=== PATIENT | female | born 1995 | race Caucasian/White ===

== ENCOUNTER 2017-12-14 06:28 | Emergency (ER) | payer MEDICAID ==
[~2017-12-14] VITALS: Ht 162.6 cm; Wt 74.5 kg
[~2017-12-14 06:28] MED LIST: ACYC5CRE2 TP; CEPH-571 PO; IBUP-1984 PO
[2017-12-14 06:31] VITALS: BP 124/71
[2017-12-14] MEDS ORDERED: acetaminophen w/codeine (30MG) #3 tablet PO ONE (07:15)
== END 2017-12-14 07:45 | disposition home or self-care (01) ==
LOC: ER 06:29
DX: O26.893 Other specified pregnancy related conditions, third trimester (principal); M53.3 Sacrococcygeal disorders, not elsewhere classified; F31.9 Bipolar disorder, unspecified; F17.200 Nicotine dependence, unspecified, uncomplicated; F11.90 Opioid use, unspecified, uncomplicated; Z79.2 Long term (current) use of antibiotics; Z79.1 Long term (current) use of non-steroidal anti-inflammatories (NSAID); Z3A.32 32 weeks gestation of pregnancy
CPT/HCPCS: 99284

== ENCOUNTER 2018-10-06 01:59 | Emergency (ER) | payer MEDICAID, OTHER ==
[~2018-10-06] VITALS: Ht 160 cm; Wt 59.1 kg
[2018-10-06 02:02] VITALS: BP 122/74
== END 2018-10-06 02:17 | disposition home or self-care (01) ==
LOC: ER 02:00
DX: J02.9 Acute pharyngitis, unspecified (principal); R42 Dizziness and giddiness; F15.90 Other stimulant use, unspecified, uncomplicated; R59.0 Localized enlarged lymph nodes; Z79.2 Long term (current) use of antibiotics; Z79.899 Other long term (current) drug therapy; Z86.14 Personal history of Methicillin resistant Staphylococcus aureus infection; W18.39XA Other fall on same level, initial encounter; Y93.89 Activity, other specified; Y92.89 Other specified places as the place of occurrence of the external cause; Y99.8 Other external cause status
CPT/HCPCS: 99281

== ENCOUNTER 2019-06-11 00:29 | Emergency (ER) | payer MEDICAID ==
[~2019-06-11] VITALS: Ht 162.6 cm; Wt 58.1 kg
--- NOTE | 2019-06-11 01:18 | NUR ---
WASHED PATIENTS HANDS WITH SOAP AND HOT WATER, AFTER EDUCATING PATIENT ON WAYS THAT HUMANS CAN GET INFECTIONS AND THE BEST PREVENTION IS HAND HYGIENE. PATIENT VERBALLY UNDERSTANDING AFTER HAND HYGIENE EDUCATION
[2019-06-11] MEDS ORDERED: CEPH-572 PO (01:21)
[2019-06-11 01:35] VITALS: BP 115/75
== END 2019-06-11 01:37 | disposition home or self-care (01) ==
LOC: ER 00:30
DX: S61.210A Laceration without foreign body of right index finger without damage to nail, initial encounter (principal); F41.9 Anxiety disorder, unspecified; F31.9 Bipolar disorder, unspecified; F20.9 Schizophrenia, unspecified; F17.200 Nicotine dependence, unspecified, uncomplicated; F15.90 Other stimulant use, unspecified, uncomplicated; Z86.14 Personal history of Methicillin resistant Staphylococcus aureus infection; Z86.69 Personal history of other diseases of the nervous system and sense organs; Z59.0 Homelessness; Z79.899 Other long term (current) drug therapy; W26.8XXA Contact with other sharp object(s), not elsewhere classified, initial encounter; Y93.89 Activity, other specified; Y92.89 Other specified places as the place of occurrence of the external cause; Y99.8 Other external cause status
CPT/HCPCS: 99283

== ENCOUNTER 2019-09-09 06:37 | Emergency (ER) | payer MEDICAID ==
[~2019-09-09] VITALS: Ht 162.6 cm; Wt 61.5 kg
[2019-09-09 06:46] VITALS: BP 104/65
--- NOTE | 2019-09-09 07:01 | NUR ---
pt came in for redness and pain to her anus. pt refused to have male doctor perform the exam so she left ama. pt signed the form and aware.
== END 2019-09-09 07:03 | disposition left against medical advice (07) ==
LOC: ER 06:37
DX: R21 Rash and other nonspecific skin eruption (principal); F41.9 Anxiety disorder, unspecified; F31.9 Bipolar disorder, unspecified; F20.9 Schizophrenia, unspecified; F15.90 Other stimulant use, unspecified, uncomplicated; Z86.69 Personal history of other diseases of the nervous system and sense organs; Z59.0 Homelessness; Z79.899 Other long term (current) drug therapy
CPT/HCPCS: 99281

== ENCOUNTER 2019-10-02 23:30 | Emergency (ER) | payer MEDICAID ==
[~2019-10-02] VITALS: Ht 162.6 cm; Wt 59.1 kg
[2019-10-02 23:57] LABS: CLARITY,URINE CLEAR (Clear); COLOR,URINE YELLOW (Yellow); GLUCOSE, URINE NEGATIVE (Neg); KETONES,URINE NEGATIVE (Neg); LEUKOCYTE ESTERASE ,URINE NEGATIVE (Neg); NITRITES, URINE NEGATIVE (Neg); OCCULT BLOOD,URINE NEGATIVE (Neg); PH,URINE 5.5 (4.8-8.0); PROTEIN,URINE NEGATIVE (Neg); URINE HCG NEGATIVE (NEG)
[2019-10-03 00:20] LABS: UA COLLECTION TYPE CLN CATCH MIDSTREAM
[2019-10-03 00:56] VITALS: BP 117/82
== END 2019-10-03 01:06 | disposition home or self-care (01) ==
LOC: VAS 23:31 → ER 10-03 01:06
DX: R30.0 Dysuria (principal); F15.10 Other stimulant abuse, uncomplicated; F41.9 Anxiety disorder, unspecified; F31.9 Bipolar disorder, unspecified; R10.2 Pelvic and perineal pain; R10.30 Lower abdominal pain, unspecified; F20.9 Schizophrenia, unspecified; Z59.0 Homelessness; Z79.899 Other long term (current) drug therapy; Z86.69 Personal history of other diseases of the nervous system and sense organs; Z86.14 Personal history of Methicillin resistant Staphylococcus aureus infection
CPT/HCPCS: 81003; 81025; 99283

== ENCOUNTER 2019-12-16 04:43 | Emergency (ER) | payer MEDICAID ==
[~2019-12-16] VITALS: Ht 160 cm; Wt 61.4 kg
[2019-12-16 04:48] VITALS: BP 125/84
[2019-12-16] MEDS ORDERED: SULF1TAB49 PO (05:10)
== END 2019-12-16 05:21 | disposition home or self-care (01) ==
LOC: ER 04:44
DX: L03.115 Cellulitis of right lower limb (principal); F41.9 Anxiety disorder, unspecified; F31.9 Bipolar disorder, unspecified; F20.9 Schizophrenia, unspecified; F17.200 Nicotine dependence, unspecified, uncomplicated; F15.90 Other stimulant use, unspecified, uncomplicated; Z59.0 Homelessness; Z86.69 Personal history of other diseases of the nervous system and sense organs; Z86.14 Personal history of Methicillin resistant Staphylococcus aureus infection; Z79.899 Other long term (current) drug therapy
CPT/HCPCS: 99283

== ENCOUNTER 2020-01-07 21:04 | Emergency (ER) | payer MEDICAID ==
[~2020-01-07] VITALS: Ht 160 cm; Wt 59.1 kg
[2020-01-07 21:16] VITALS: BP 118/78
[2020-01-07] MEDS ORDERED: CLIN-97 PO (21:36)
== END 2020-01-07 21:45 | disposition home or self-care (01) ==
LOC: ER 21:04
DX: L02.411 Cutaneous abscess of right axilla (principal); F31.9 Bipolar disorder, unspecified; F41.9 Anxiety disorder, unspecified; F20.9 Schizophrenia, unspecified; F15.90 Other stimulant use, unspecified, uncomplicated; Z86.14 Personal history of Methicillin resistant Staphylococcus aureus infection; Z86.69 Personal history of other diseases of the nervous system and sense organs; Z59.0 Homelessness; Z79.899 Other long term (current) drug therapy
CPT/HCPCS: 99283

== ENCOUNTER 2020-03-01 23:46 | Emergency (ER) | payer MEDICAID ==
[~2020-03-01] VITALS: Ht 160 cm; Wt 47.0 kg
[~2020-03-01 23:46] MED LIST changes: +CLIN-97 PO
[2020-03-01 23:51] VITALS: BP 106/74
[2020-03-02] MEDS ORDERED: CLIN-97 PO (00:23)
== END 2020-03-02 00:36 | disposition home or self-care (01) ==
LOC: ER 23:46
DX: L02.415 Cutaneous abscess of right lower limb (principal); F41.9 Anxiety disorder, unspecified; F31.9 Bipolar disorder, unspecified; F20.9 Schizophrenia, unspecified; F15.90 Other stimulant use, unspecified, uncomplicated; Z86.69 Personal history of other diseases of the nervous system and sense organs; Z86.14 Personal history of Methicillin resistant Staphylococcus aureus infection; Z59.0 Homelessness; Z79.2 Long term (current) use of antibiotics; Z79.899 Other long term (current) drug therapy
CPT/HCPCS: 99283

== ENCOUNTER 2020-05-13 01:56 | Emergency (ER) | payer MEDICAID ==
[~2020-05-13] VITALS: Ht 162.6 cm; Wt 61.4 kg
[2020-05-13 01:59] VITALS: BP 119/71
== END 2020-05-13 02:41 | disposition home or self-care (01) ==
LOC: ER 01:57
DX: T14.8XXA Other injury of unspecified body region, initial encounter (principal); F41.9 Anxiety disorder, unspecified; F31.9 Bipolar disorder, unspecified; F20.9 Schizophrenia, unspecified; F15.90 Other stimulant use, unspecified, uncomplicated; Z72.821 Inadequate sleep hygiene; Z86.69 Personal history of other diseases of the nervous system and sense organs; Z86.14 Personal history of Methicillin resistant Staphylococcus aureus infection; Z59.0 Homelessness; Z79.2 Long term (current) use of antibiotics; Z79.899 Other long term (current) drug therapy; X58.XXXA Exposure to other specified factors, initial encounter; Y93.89 Activity, other specified; Y92.89 Other specified places as the place of occurrence of the external cause; Y99.8 Other external cause status
CPT/HCPCS: 99281

== ENCOUNTER 2020-06-04 12:23 | Emergency (ER) | payer MEDICAID ==
[~2020-06-04] VITALS: Ht 162.6 cm; Wt 68.2 kg
[2020-06-04 12:43] VITALS: BP 120/63
[2020-06-04] MEDS ORDERED: BACDS PO (14:27)
[2020-06-04] MEDS ORDERED: CEPH250T PO (14:27)
== END 2020-06-04 14:43 | disposition home or self-care (01) ==
LOC: ER 12:24
DX: L02.414 Cutaneous abscess of left upper limb (principal); L03.114 Cellulitis of left upper limb; F41.9 Anxiety disorder, unspecified; F31.9 Bipolar disorder, unspecified; F20.9 Schizophrenia, unspecified; F15.90 Other stimulant use, unspecified, uncomplicated; Z86.69 Personal history of other diseases of the nervous system and sense organs; Z86.14 Personal history of Methicillin resistant Staphylococcus aureus infection; Z59.0 Homelessness; Z79.2 Long term (current) use of antibiotics; Z79.899 Other long term (current) drug therapy
CPT/HCPCS: 99283

== ENCOUNTER 2020-08-09 00:41 | Emergency (ER) | payer MEDICAID ==
[~2020-08-09] VITALS: Ht 162.6 cm; Wt 70.3 kg
[2020-08-09 01:53] VITALS: BP 118/78
== END 2020-08-09 01:54 | disposition home or self-care (01) ==
LOC: ER 00:42
DX: L73.1 Pseudofolliculitis barbae (principal); F41.9 Anxiety disorder, unspecified; F31.9 Bipolar disorder, unspecified; F20.9 Schizophrenia, unspecified; F15.90 Other stimulant use, unspecified, uncomplicated; Z86.69 Personal history of other diseases of the nervous system and sense organs; Z86.14 Personal history of Methicillin resistant Staphylococcus aureus infection; Z59.0 Homelessness; Z79.2 Long term (current) use of antibiotics; Z79.899 Other long term (current) drug therapy
CPT/HCPCS: 99281

== ENCOUNTER 2020-08-27 11:59 | Emergency (ER) | payer MEDICAID ==
[~2020-08-27] VITALS: Ht 160 cm; Wt 68.2 kg
[2020-08-27] MEDS ORDERED: acetaminophen 325mg tablet PO ONE (13:05)
[2020-08-27] MEDS ORDERED: clindamycin 150mg capsule PO ONE (13:05)
[2020-08-27] MEDS ORDERED: CLIN150C2 PO (13:06)
[2020-08-27 13:39] VITALS: BP 119/81
== END 2020-08-27 13:45 | disposition home or self-care (01) ==
LOC: ER 12:01
DX: L02.416 Cutaneous abscess of left lower limb (principal); L03.116 Cellulitis of left lower limb; F41.9 Anxiety disorder, unspecified; F31.9 Bipolar disorder, unspecified; F20.9 Schizophrenia, unspecified; F15.90 Other stimulant use, unspecified, uncomplicated; Z86.69 Personal history of other diseases of the nervous system and sense organs; Z86.14 Personal history of Methicillin resistant Staphylococcus aureus infection; Z59.0 Homelessness; Z79.2 Long term (current) use of antibiotics; Z79.899 Other long term (current) drug therapy
CPT/HCPCS: 99283

== ENCOUNTER 2023-02-22 22:45 | Emergency (ER) | payer MEDICAID ==
[~2023-02-22] VITALS: Ht 160 cm; Wt 67.8 kg
[2023-02-22 22:50] VITALS: BP 98/59; PULSE 100; RESP 0; TEMP 98.5; O2SAT 99
[2023-02-23] MEDS ORDERED: HYDROcodone/acetaminophen 10/325mg tab PO ONE (00:30)
[2023-02-23] MEDS ORDERED: amox tr/potassium clavulanate 875/125mg TAB PO ONE (00:30)
[2023-02-23] MEDS ORDERED: naproxen 500mg tablet PO ONE (00:30)
[2023-02-23] MEDS ORDERED: AMOX-117 PO (00:36)
[2023-02-23] MEDS ORDERED: HYDR-3965 PO (00:36)
[2023-02-23] MEDS ORDERED: NAPR-56 PO (00:36)
[2023-02-23] MEDS ORDERED: ALBU6.7H14 INH (00:47)
== END 2023-02-23 00:51 | disposition home or self-care (01) ==
LOC: ER 22:45
DX: K04.7 Periapical abscess without sinus (principal); K02.9 Dental caries, unspecified
CPT/HCPCS: 99284

== ENCOUNTER 2023-03-26 23:31 | Emergency (ER) | payer MEDICAID ==
[~2023-03-26] VITALS: Ht 160 cm; Wt 63.0 kg
[~2023-03-26 23:31] MED LIST changes: +ALBU6.7H14 INH; +HYDR-3965 PO; +NAPR-56 PO
[2023-03-27] MEDS ORDERED: ketorolac trometh inj. 60 MG/2 ML VIAL IM ONE (00:20)
[2023-03-27] MEDS ORDERED: amox tr/potassium clavulanate 875/125mg TAB PO ONE (00:20)
[2023-03-27] MEDS ORDERED: AMOX-117 PO (00:33)
[2023-03-27] MEDS ORDERED: IBUP-1984 PO (00:37)
[2023-03-27 01:21] VITALS: BP 110/76; PULSE 114; RESP 16; TEMP 98; O2SAT 97
== END 2023-03-27 01:23 | disposition home or self-care (01) ==
LOC: ER 23:32
DX: K04.7 Periapical abscess without sinus (principal); F19.20 Other psychoactive substance dependence, uncomplicated
CPT/HCPCS: 96372; 99283; J1885

== ENCOUNTER 2023-11-26 22:18 | Emergency (ER) | payer MEDICAID ==
[~2023-11-26] VITALS: Ht 157.5 cm; Wt 53.2 kg
[~2023-11-26 22:18] MED LIST changes: -HYDR-3965 PO; -NAPR-56 PO
[2023-11-26 22:20] VITALS: TEMP 98.9
[2023-11-26] MEDS ORDERED: SODI354S PO (23:09)
[2023-11-26 23:38] VITALS: BP 103/68; PULSE 94; RESP 18; O2SAT 95
== END 2023-11-26 23:30 | disposition home or self-care (01) ==
LOC: ER 22:19
DX: K59.00 Constipation, unspecified (principal); F31.9 Bipolar disorder, unspecified; F15.90 Other stimulant use, unspecified, uncomplicated; Z79.2 Long term (current) use of antibiotics; Z79.899 Other long term (current) drug therapy; Z79.1 Long term (current) use of non-steroidal anti-inflammatories (NSAID)
CPT/HCPCS: 99283

== ENCOUNTER 2024-03-24 15:33 | Emergency (ER) | payer MEDICAID ==
[~2024-03-24] VITALS: Ht 154.9 cm; Wt 64.1 kg
[~2024-03-24 15:33] MED LIST changes: +SODI354S PO
[2024-03-24 16:22] LABS: BASOPHILS % (AUTO) 0.1 % (0-1); EOSINOPHILS % (AUTO) 0.1 % (0-6); HEMATOCRIT 37.7 % (35.0-45.0); HEMOGLOBIN 12.8 g/dl (12.0-16.0); LYMPHOCYTES # (AUTO) 0.5 X10'3 (1.1-4.8); MEAN CORPUSCULAR HEMOGLOBIN 29.5 PG (27.0-31.0); MEAN CORPUSCULAR VOLUME 86.6 FL (78-98); MEAN PLATELET VOLUME 6.9 FL (7.4-10.4); MONOCYTES # (AUTO) 0.9 X10'3 (0-0.9); NEUTROPHILS # (AUTO) 7.6 X10'3 (1.8-7.7); NEUTROPHILS % (AUTO) 83.8 % (42-75); PLATELET COUNT 331 X10'3 (140-440); RED BLOOD COUNT 4.36 X10'6 (4.20-5.60); RED CELL DISTRIBUTION WIDTH 12.7 % (11.5-14.5)
[2024-03-24 16:26] LABS: ALANINE AMINOTRANSFERASE 46 U/L (12-78); ALBUMIN 3.8 G/DL (3.4-5.0); ALKALINE PHOSPHATASE 89 IU/L (46-116); ANION GAP 9 (8-16); ASPARTATE AMINO TRANSFERASE 32 U/L (10-37); BILIRUBIN,TOTAL 0.4 MG/DL (0.1-1.0); BLOOD UREA NITROGEN 10 MG/DL (7-18); BUN/CREATININE RATIO 12.8 (10.0-20.0); CALCIUM 9.4 MG/DL (8.5-10.1); CHLORIDE 102 MMOL/L (99-107); CREATININE 0.78 MG/DL (0.40-0.90); GLUCOSE 111 MG/DL (70-104); LIPASE 19 U/L (16-77); POTASSIUM 4.2 MMOL/L (3.5-5.1); SODIUM 138 MMOL/L (135-145); TOTAL PROTEIN 7.6 G/DL (6.4-8.2); eCRCL 80 ML/MIN; eGFR 87 ML/MIN
[2024-03-24] MEDS: ondansetron/PF 4mg/2ml inj IV ONE (17:19)
[2024-03-24] MEDS: normal saline 1000ML IV soln IVB ONE (17:19)
[2024-03-24] MEDS: morphine 4 MG/ML inj SYRINge IV ONE (17:44)
[2024-03-24 18:19] LABS: HCG SERUM QL NEGATIVE
[2024-03-24] MEDS ORDERED: iohexol 300mg/ml 100ml inj. ONE (18:21)
[2024-03-24 20:43] VITALS: BP 110/76; PULSE 81; RESP 16; TEMP 97.5; O2SAT 99
== END 2024-03-24 20:44 | disposition home or self-care (01) ==
LOC: ER 15:34
DX: K59.00 Constipation, unspecified (principal); R11.2 Nausea with vomiting, unspecified; R10.9 Unspecified abdominal pain; F20.9 Schizophrenia, unspecified; F31.9 Bipolar disorder, unspecified; F15.90 Other stimulant use, unspecified, uncomplicated; Z79.899 Other long term (current) drug therapy
CPT/HCPCS: 36415; 74177; 80053; 83690; 84703; 85025; 96361; 96374; 99285; J2405; J7030; Q9967

== ENCOUNTER 2024-08-06 13:12 | Emergency (ER) | payer MEDICAID ==
[~2024-08-06] VITALS: Ht 162.6 cm; Wt 62.0 kg
[2024-08-06 13:29] VITALS: BP 103/60; PULSE 90; RESP 13; TEMP 97.8; O2SAT 98
[2024-08-06] MEDS ORDERED: CEPH-585 PO (13:57)
[2024-08-06] MEDS: erythromycin ophthalmic ointment 1gm tube RIGHTEYE ONE (14:05)
== END 2024-08-06 14:11 | disposition home or self-care (01) ==
LOC: ER 13:13
DX: H00.011 Hordeolum externum right upper eyelid (principal); F20.9 Schizophrenia, unspecified; F31.9 Bipolar disorder, unspecified; F41.9 Anxiety disorder, unspecified; F15.90 Other stimulant use, unspecified, uncomplicated; F17.210 Nicotine dependence, cigarettes, uncomplicated
CPT/HCPCS: 99283

== ENCOUNTER 2024-09-05 09:08 | Emergency (ER) | payer MEDICAID ==
[~2024-09-05] VITALS: Ht 162.6 cm; Wt 68.8 kg
[~2024-09-05 09:08] MED LIST changes: +CEPH-585 PO
[2024-09-05 09:24] VITALS: BP 111/69; PULSE 90; RESP 18; O2SAT 100
[2024-09-05] MEDS ORDERED: CEPH-585 PO (09:53)
[2024-09-05] MEDS ORDERED: BUPR1FIL3 SL (09:53)
[2024-09-05] MEDS ORDERED: NALO4SPR22 (09:55)
[2024-09-05 10:02] VITALS: TEMP 97.1
== END 2024-09-05 10:03 | disposition home or self-care (01) ==
LOC: ER 09:08
DX: F11.20 Opioid dependence, uncomplicated (principal); F20.9 Schizophrenia, unspecified; F32.A Depression, unspecified; F41.9 Anxiety disorder, unspecified; F15.90 Other stimulant use, unspecified, uncomplicated; Z59.00 Homelessness unspecified; Z79.1 Long term (current) use of non-steroidal anti-inflammatories (NSAID); Z79.899 Other long term (current) drug therapy
CPT/HCPCS: 99281